=== PATIENT | female | born 1980 | race Caucasian/White ===

== ENCOUNTER 2017-01-18 20:41 | Emergency (ER) | payer OTHER ==
[~2017-01-18 20:41] MED LIST: ALPRAZOLAM PO; VICODIN 5/500 T1 TAB PO
== END 2017-01-18 21:30 | disposition home or self-care (01) ==
LOC: CFTX 20:41 → CED 20:41 → CFTX 21:15
DX: S56.911A Strain of unspecified muscles, fascia and tendons at forearm level, right arm, initial encounter (principal); J45.909 Unspecified asthma, uncomplicated; F41.9 Anxiety disorder, unspecified; X58.XXXA Exposure to other specified factors, initial encounter; Y92.009 Unspecified place in unspecified non-institutional (private) residence as the place of occurrence of the external cause
CPT/HCPCS: 29260; 99283